=== PATIENT | male | born 1990 | race Caucasian/White ===

== ENCOUNTER 2016-10-24 16:54 | Outpatient (CLI) | END 2016-10-24 16:55 | disposition home or self-care (01) | LOC: LAB 16:54 | PROVIDERS: ATTEND Nurse Practitioner Family | DX: L05.91 Pilonidal cyst without abscess (principal) | CPT/HCPCS: 87070 ==

== ENCOUNTER 2017-05-13 12:36 | Outpatient (CLI) | END 2017-05-13 12:37 | disposition home or self-care (01) | LOC: LAB 12:36 | PROVIDERS: ATTEND Emergency Medicine | DX: L02.32 Furuncle of buttock (principal); R59.0 Localized enlarged lymph nodes; R35.0 Frequency of micturition | CPT/HCPCS: 36415; 80053; 81001; 85025 ==

== ENCOUNTER 2017-09-23 13:23 | Outpatient (CLI) ==
--- NOTE | 2017-09-23 14:16 | DI ---
EXAM: Three views of the lumbar spine. History: Lower back pain. Findings: No acute fracture. 3 mm retrolisthesis of L5 on S1. Mild to moderate disc space narrowing at L5-S1 with anterior osteophytes. Impression: 1. No acute fracture. 2. Grade 1 retrolisthesis of L5 on S1. 3. Mild to moderate degenerative disc disease at L5-S1
== END 2017-09-23 13:24 | disposition home or self-care (01) ==
LOC: LAB 13:23
PROVIDERS: ATTEND Emergency Medicine
DX: M54.5 Low back pain (principal); G89.29 Other chronic pain; L05.01 Pilonidal cyst with abscess; N30.01 Acute cystitis with hematuria
CPT/HCPCS: 36415; 80053; 81001; 85025